=== PATIENT | male | born 1985 | race Caucasian/White ===

== ENCOUNTER 2020-12-04 21:00 | Emergency (ER) | payer OTHER ==
[~2020-12-04] VITALS: Ht 177.8 cm; Wt 80.0 kg
[2020-12-04 22:01] LABS: HEMATOCRIT 38.2 % (39.0-50.0); MEAN CELL VOLUME 92.9 fL CALC (80.0-100.0); MEAN CORPUSCULAR HGB 31.6 pG CALC (26.0-32.0); NEUT# 2.61 thou/uL (1.82-7.42); RED BLOOD COUNT 4.11 mill/uL (4.70-6.10); RED CELL DISTRI WIDTH 12.4 % (11.5-15.5)
[2020-12-04 22:14] LABS: ALBUMIN 4.4 g/dL (3.2-5.0); ALKALINE PHOSPHATASE 67 u/l (38-126); ANION GAP 11 (6-22 (CALC)); BILIRUBIN, TOTAL 0.4 mg/dL (0.0-1.4); BUN 16 mg/dL (9-20); BUN/CREATININE RATIO 18 (12-20 (CALC)); CARBON DIOXIDE 30 mmol/l (22-30); CHLORIDE 101 mmol/l (95-108); CREATININE 0.9 mg/dL (0.7-1.3); GFR > 60 ML/MIN (>=60 (CALC)); GFR FOR AFR.AMER. > 60 ML/MIN (>=60 (CALC)); POTASSIUM 3.9 mmol/l (3.5-5.1); SGOT/AST 31 u/l (17-59); SODIUM 137 mmol/l (137-146); TOTAL PROTEIN 7.2 g/dL (6.3-8.2)
[2020-12-04] MEDS ORDERED: PEPCID20 MG PO (22:26)
[2020-12-04] MEDS ORDERED: MEDDOSEPAK PO (22:26)
[2020-12-04] MEDS ORDERED: KEFLEX500 MG PO (22:26)
[2020-12-04] MEDS ORDERED: BENADRYL ALLERG25 MG PO (22:26)
[2020-12-04 23:10] VITALS: BP 132/78
== END 2020-12-04 23:10 | disposition home or self-care (01) | DRG 603 ==
LOC: ED 21:00 → EDBD 21:00 → ED 21:58
PROVIDERS: Emergency Medicine
DX: L03.113 Cellulitis of right upper limb (principal); T63.481A Toxic effect of venom of other arthropod, accidental (unintentional), initial encounter

== ENCOUNTER 2021-09-10 16:00 | Emergency (ER) | payer OTHER ==
[~2021-09-10] VITALS: Ht 177.8 cm; Wt 80.0 kg
[~2021-09-10 16:00] MED LIST: BENADRYL ALLERG25 MG PO; KEFLEX500 MG PO; MEDDOSEPAK PO; PEPCID20 MG PO
[2021-09-10 16:13] VITALS: BP 143/84
[2021-09-10 16:15] VITALS: BP 136/78
[2021-09-10] MEDS ORDERED: CLARITIN-D1 TA2 PO (16:17)
[2021-09-10 16:30] VITALS: BP 129/76
[2021-09-10 16:45] VITALS: BP 137/75
[2021-09-10 17:00] VITALS: BP 131/78
[2021-09-10] MEDS ORDERED: HYDROCORTISONE2.5 % EX (17:01)
[2021-09-10] MEDS ORDERED: BENADRYL25 M1 PO (17:01)
[2021-09-10] MEDS ORDERED: MEDDOSEPAK PO (17:01)
[2021-09-10 17:15] VITALS: BP 128/78
== END 2021-09-10 17:25 | disposition home or self-care (01) | DRG 916 ==
LOC: ED 16:00
DX: T78.40XA Allergy, unspecified, initial encounter (principal); T63.421A Toxic effect of venom of ants, accidental (unintentional), initial encounter